=== PATIENT | female | born 1985 | race Caucasian/White ===

== ENCOUNTER 2018-03-24 10:02 | Emergency (ER) | payer MEDICAID ==
[~2018-03-24] VITALS: Ht 170.2 cm; Wt 122.5 kg
[2018-03-24 10:04] VITALS: Ht 170.2 cm; Wt 122.5 kg
[2018-03-24 12:50] LABS: BASOPHIL % 0.3 % (0-2)
[2018-03-24 12:53] LABS: CARBON DIOXIDE 23.6 mmol/L (21-32); CHLORIDE SERUM 104 mmol/L (98-107); CREATININE SERUM 0.8 mg/dL (0.6-1.0); GFR1 > 60 mL/min; GLUCOSE SERUM 100 mg/dL (74-106); POTASSIUM SERUM 4.4 mmol/L (3.5-5.1); SODIUM SERUM 138 mmol/L (136-145)
[2018-03-24 12:54] LABS: PLATELET COUNT 411 x10^3mcL (130-400); RED CELL DISTRIBUTION WIDTH 16.8 % (11.5-14.5)
[2018-03-24 13:00] LABS: ALBUMIN 3.4 g/dL (3.4-5.0); ALKALINE PHOSPHATASE 92 U/L (46-116); ALT/SGPT 23 U/L (14-59); AST/SGOT 14 U/L (15-37); BILIRUBIN TOTAL 0.27 mg/dL (0.20-1.00); LIPASE 111 IU/L (73-393); TOTAL PROTEIN, SERUM 8.1 g/dL (6.4-8.2)
[2018-03-24 15:23] VITALS: BP 124/55
== END 2018-03-24 15:23 | disposition home or self-care (01) ==
LOC: ED 10:02
PROVIDERS: Emergency Medicine Emergency Medical Services
DX: R10.13 Epigastric pain (principal); R11.2 Nausea with vomiting, unspecified; I10 Essential (primary) hypertension
CPT/HCPCS: J2060; J2270; J3490; Q0092; Q0162

== ENCOUNTER 2018-04-01 20:00 | Emergency (ER) | payer MEDICAID ==
[~2018-04-01] VITALS: Ht 170.2 cm; Wt 126.6 kg
[2018-04-01 20:03] VITALS: Ht 170.2 cm; Wt 126.6 kg
[2018-04-01 21:28] VITALS: BP 133/77
== END 2018-04-01 21:28 | disposition home or self-care (01) ==
LOC: ED 20:00
DX: L03.116 Cellulitis of left lower limb (principal); Z90.49 Acquired absence of other specified parts of digestive tract
CPT/HCPCS: J1885; Q0092

== ENCOUNTER 2018-06-30 20:46 | Emergency (ER) | payer MEDICAID ==
[~2018-06-30] VITALS: Ht 170.2 cm; Wt 121.6 kg
[2018-06-30 20:53] VITALS: Ht 170.2 cm; Wt 121.6 kg
[2018-06-30 22:37] VITALS: BP 136/71
== END 2018-06-30 22:37 | disposition home or self-care (01) ==
LOC: ED 20:46
DX: M79.672 Pain in left foot (principal); M79.641 Pain in right hand; I83.92 Asymptomatic varicose veins of left lower extremity; I10 Essential (primary) hypertension; Z90.49 Acquired absence of other specified parts of digestive tract
CPT/HCPCS: J1885

== ENCOUNTER 2019-09-28 21:32 | Emergency (ER) | payer MEDICAID ==
[~2019-09-28] VITALS: Ht 170.2 cm; Wt 117.1 kg
[2019-09-28 21:56] VITALS: Ht 170.2 cm; Wt 117.1 kg
[2019-09-28 23:08] VITALS: BP 142/80
== END 2019-09-28 23:09 | disposition home or self-care (01) ==
LOC: ED 21:32
DX: J98.01 Acute bronchospasm (principal); E66.9 Obesity, unspecified; I10 Essential (primary) hypertension; Z68.41 Body mass index [BMI] 40.0-44.9, adult; Z90.49 Acquired absence of other specified parts of digestive tract
CPT/HCPCS: J2930; J7613; J7644